=== PATIENT | male | born 1945 | race Caucasian/White ===

== ENCOUNTER 2018-05-16 10:17 | Emergency (ER) | payer MEDICARE, SELFPAY ==
[2018-05-16] VITALS (50 sets, daily range): BP systolic 116–175; BP diastolic 68–112; PULSE 59–102; RESP 11–31; TEMP 36.5–37.9; O2SAT 86–100
--- NOTE | 2018-05-16 10:35 | DI.RAD_ITS ---
SYMPTOMS/DIAGNOSIS: COUGH, SHORTNESS OF BREATH PA AND LATERAL CHEST: Comparison 12/03/07. The heart is normal in size. The lungs are clear. The mediastinal structures and pleura appear intact. CONCLUSION: Normal chest.
--- NOTE | 2018-05-16 10:38 | W.ED.GENAD ---
Discharge Plan Disposition Patient Disposition: OTHER Condition: Poor Discharge Details Chief Complaint: GenMedical Clinical Impression: Acute alteration in mental status, Medication error Primary Care Provider: Grace Flynn ED Provider: Aruna [facility]ows [place] Meds and New Rx's Prescriptions: No Action atorvastatin [Lipitor] 20 MG tablet 80 mg PO DAILY RF: 0 doxepin 25 MG capsule 50 mg PO DAILY RF: 0 clonazepam 1 MG tablet 1 mg PO BID RF: 0 atenolol 25 MG tablet 25 mg PO DAILY RF: 0 aspirin [Aspir-81] 81 MG tablet,delayed release (DR/EC) 81 mg PO DAILY RF: 0 trazodone 150 MG tablet 150 mg PO HS RF: 0 zolpidem 10 MG tablet 10 mg PO .QHS RF: 0 fluoxetine [Prozac] 40 mg Capsule 40 mg PO DAILY RF: 0 acetaminophen 325 mg Tablet 650 mg PO Q6H PRNRF: 0 ipratropium-albuterol 0.5 mg-3 mg(2.5 mg base)/3 mL Solution For Nebulization 3 ml INHALATION QID PRNRF: 0 albuterol sulfate 1.25 mg/3 mL Solution For Nebulization 1.25 mg INHALATION Q4H PRNRF: 0 dextroamphetamine-amphetamine 30 mg Tablet 30 mg PO BID RF: 0 albuterol sulfate 90 mcg/actuation Hfa Aerosol Inhaler 2 puff INHALATION Q6H PRNRF: 0 carboxymethylcellulose sodium 0.5 % Drops 1 drp OPHTHALMIC (EYE) Q6H PRNRF: 0 aripiprazole 2 mg Tablet 0.5 tab PO DAILY RF: 0 cetirizine 10 mg Capsule 10 mg PO BID RF: 0 furosemide 40 mg Tablet 40 mg PO DAILY RF: 0 prazosin 1 mg Capsule 3 cap PO HS RF: 0 prednisone 20 mg Tablet 20 mg PO DAILY RF: 0 metformin 850 mg Tablet 850 mg PO BID RF: 0 melatonin 3 mg Tablet 3 mg PO HS PRNRF: 0 omeprazole 20 mg Capsule,Delayed Release(Dr/Ec) 20 mg PO DAILY RF: 0 hydroxyzine HCl 10 mg Tablet 10 mg PO TID RF: 0 multivitamin Capsule 1 cap PO DAILY RF: 0 fluoxetine 20 mg Capsule 20 mg PO DAILY RF: 0 fluticasone 50 mcg/actuation [place],Suspension 2 spray INTRANASAL DAILY RF: 0 tiotropium bromide 18 mcg Capsule, W/Inhalation Device 1 cap INHALATION DAILY RF: 0 lactulose 10 gram/15 mL Solution 15 ml PO BID PRNRF: 0 Discharge Data Discharge Date/Time-TO BE ENTERED AT DEPARTURE: 05/16/18 19:27 Medical Decision Making [facility] Narrative Medical decision making narrative: Patient presents today with multiple complaints. On initial presentation, he appears tachypneic and short of breath. However, he is taking good deep breaths lung sounds are clear. Vital signs are stable. He is moving air well. With ambulation the patient's tachypnea resolved. Seems worse more actually discussing his current symptoms. This seems to elevate his level of anxiety. Endorsing chest pain shortness of breath, diplopia, headache, tingling in his hands and his feet. His neuro exam is intact. Patient does appear very anxious and easily agitated, particularly talking about past medical care. He reports that he has been to multiple places for that his current complaints. Will obtain EKG, chest x-ray, head CT, laboratory evaluation. He reports that he has been taking his medications as prescribed, is on multiple psychiatric medications. 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 EKG was reviewed by Dr. Prabhakar. No acute ischemic changes or acute abnormalities are noted per her report. I did discuss the case with Dr. Prabhakar. In particular, we discussed the patient's unusual movements of his mandible. She was most consistent with a dystonic reaction. I did review the patient's medications with her questioning for this may be secondary to psychiatric source. Neuro exam otherwise intact. She advised trying Benadryl to help with symptomatic We were contacted by radiologist who advised a negative CT of the head. Also reviewed the chest x-ray and advised no acute abnormality was noted. Discussed these findings with the patient. Patient received Benadryl for his apparent dystonic reaction with the movement of his jaw. I first went into the room, the patient was not having any of his dystonic movements any longer. HAs been resting comfortably. However, when I began chatting with him the movement began again. He is breathing comfortably, unlabored but again, when I begin chatting with the patient is respiratory rate increases. He is ambulated about the department to go to the restroom and when ambulating does not appear tachypneic and has his mouth closed with breathing. However, with talking with me he becomes more tachypneic and is needing to breathe through his mouth. Patient has been calm since Benadryl. I did review the findings of his laboratory evaluation as well as his imaging. He maintains very odd affect and continues to have these dystonic-like movements. Will attempt to contact primary care. Reports multiple places that he received care but [facility] [place] While I was attempting to contact patient's primary care at 1340, patient became very agitated with yelling. Dr. Prabhakar went in to evaluate the patient contacted me. This is a sudden acute change in his demeanor. Began yelling and is agitated. Is just screaming nonsensical words and making noises. Is now reporting that he has not had his medications in 6 days. Reports the [facility] is trying to kill me. He states that he is taking 18 medications. REports he is taking many more medications that he had initially reported. Patient given 2mg IV Ativan. After receiving the Ativan, he reports he is feeling improved. Self insite is much improved. He is able to talk at this time about stopping his medications more readily. Sounds scared about what he has been experiencing, feels alone. I was able to review the [facility] from the [facility]. Patient has saught help for his multiple complaints x 4 in the past week. Each times sounds to have had a cardiac workup. Patient did not sound to indicate at that time his psychiatric concerns. Note does not indicate that the patient had expressed thoughts of stopping his medications. Given the patients mental condition, multiple times of hospital visits, I do not feel that he is safe to go home. Unclear, given his multiple times different stories while here, how the patient has been taking his medications. We discussed that he needs help with his medications and his mental health, patient is very thankful to discuss this. Is very excited about the idea of admission. Contacted [facility] to discuss transfer. Spoke with [facility] phsycian, no beds available. As patient is from [place] and typically gets [facility] in the [facility] [place], they recommended contacting that [facility]. Consulted with the [facility] [place], spoke with Dr. Barron in the ER who accepts transfer. Discussed this with the patient. He is happy to be going back to [place] with a plan for admission. Agrees to transfer. Will give patient po dosing of Ativan prior to transfer as he is anxious about the ambulance ride. Arranged for transfer via EMS. Patient remained calm, was eating and drinking. HPI - General Adult General Mode of arrival: ambulatory. Date/Time Provider Initiated Documentation: 05/16/18 10:28. Limitations to Documentation: no limitations. Information obtained by: patient. HPI Narrative: Patient is a 72-year-old male with history of COPD and depression, presenting today with a multitude of complaints. Reports that for the past 2-3 days he has been having frontal headache, shortness of breath, abnormal movements of his jaw, feeling of unwell, loose bowel movements. Reports that he does not typically have history of headaches. States this is frontal. It was not thunderclap onset. States the headache has persisted over the past 3 days has not changed in severity. Denies any nausea or vomiting. Has had 2 loose bowel movements today. Is also endorsing shortness of breath that has been persistent for the past 2-3 days. Does report that he has history of COPD. Ex-smoker. Has not noted any wheezing or stridor. States that he has had cough that has been quite mild and nonproductive. Since that he is having pleuritic chest pain particularly with cough. Denies any recent travel. No recent surgery. Denies any pain in his legs. Reports that chest pain is not exertional, seems to be more cough driven. Reports I have lung pain. Denies any history of cardiac issues. No history of [place]. No recent fevers. Related Data Home Medications Medication Instructions Recorded Confirmed aspirin [Aspir 81] 81 mg PO DAILY 11/25/12 05/16/18 atenolol 25 mg PO DAILY 11/25/12 05/16/18 atorvastatin [Lipitor] 80 mg PO DAILY 11/25/12 05/16/18 clonazepam 1 mg PO BID 11/25/12 05/16/18 doxepin 50 mg PO DAILY 11/25/12 05/16/18 trazodone 150 mg PO HS 11/25/12 05/16/18 zolpidem 10 mg PO .QHS 11/25/12 05/16/18 acetaminophen 650 mg PO Q6H PRN 05/16/18 05/16/18 albuterol sulfate 1.25 mg INHALATION Q4H PRN 05/16/18 05/16/18 albuterol sulfate 2 puff INHALATION Q6H PRN 05/16/18 05/16/18 aripiprazole 0.5 tab PO DAILY 05/16/18 05/16/18 carboxymethylcellulose sodium 1 drp OPHTHALMIC (EYE) Q6H PRN 05/16/18 05/16/18 cetirizine 10 mg PO BID 05/16/18 05/16/18 dextroamphetamine-amphetamine 30 mg PO BID 05/16/18 05/16/18 fluoxetine 20 mg PO DAILY 05/16/18 05/16/18 fluoxetine [Prozac] 40 mg PO DAILY 05/16/18 05/16/18 fluticasone 2 spray INTRANASAL DAILY 05/16/18 05/16/18 furosemide 40 mg PO DAILY 05/16/18 05/16/18 hydroxyzine HCl 10 mg PO TID 05/16/18 05/16/18 ipratropium-albuterol 3 ml INHALATION QID PRN 05/16/18 05/16/18 lactulose 15 ml PO BID PRN 05/16/18 05/16/18 melatonin 3 mg PO HS PRN 05/16/18 05/16/18 metformin 850 mg PO BID 05/16/18 05/16/18 multivitamin 1 cap PO DAILY 05/16/18 05/16/18 omeprazole 20 mg PO DAILY 05/16/18 05/16/18 prazosin 3 cap PO HS 05/16/18 05/16/18 prednisone 20 mg PO DAILY 05/16/18 05/16/18 tiotropium bromide 1 cap INHALATION DAILY 05/16/18 05/16/18 Allergies Allergy/AdvReac Type Severity Reaction Status Date / Time No Known Allergies Allergy Unverified 05/16/18 12:49 Review of Systems Constitutional Reports as per HPI, Denies body ache(s), Denies chills, Reports fatigue, Denies fever(s), Denies frequent falls, Reports headache(s), Reports malaise, Denies night sweats and Reports poor appetite Eyes Patient Reports diplopia (reports this began shortly prior to arrival), Denies itchy eyes, Denies loss of vision and Denies photophobia ENT Reports abnormal hearing, Reports headache(s), Denies neck pain and Denies sore throat Cardiovascular Reports as per HPI, Reports chest pain, Reports chest pain at rest, Reports chest pain with activity, Denies diaphoresis, Denies syncope, Denies pedal edema, Denies edema, Denies irregular heart rhythm, Denies radiating jaw, neck or arm pain, Denies palpitations, Reports dyspnea and Reports dyspnea on exertion Respiratory Reports cough, Denies hemoptysis, Reports dyspnea, Reports dyspnea on exertion, Denies stridor and Denies wheezing Gastrointestinal Reports as per HPI, Denies melena and Reports change in bowel habits (reports that yesterday and today his BM has been ) Musculoskeletal Denies neck pain Neurologic Reports abnormal hearing, Denies syncope, Denies frequent falls, Reports headache(s) and Denies loss of vision Endocrine Reports fatigue and Denies palpitations Allergic/Immunologic Denies itchy eyes and Denies wheezing [facility] Social History Smoking/Tobacco Use Status: Former Tobacco Use Exam Const General: well developed, acute distress (Patient is tachypnic, appears to be moving air well. He is anxious appearing) moderate and respiratory, anxious, not diaphoretic, disheveled, not ill appearing, does not appear intoxicated, not lethargic and No well hydrated Nutritional Appearance: average body habitus Orientation: alert, awake and oriented x3 HENMT Head: normal to inspection and normocephalic Ears: hearing grossly normal bilaterally, external ears normal and TM's normal bilaterally General nose exam: external nose normal and nares normal Face and sinus: normal facial exam Mouth: oral mucosae normal, lip normal, tongue normal, oropharynx normal and mucous membranes dry (patient appears dry) Teeth and gingiva: dentition normal and gingiva normal Throat: posterior oropharynx normal, tonsils normal and uvula midline Eyes General: appearance normal, both eyes and all related structures Visual Rangel: normal visual rangel by confrontation Alignment and Position: alignment normal Periorbital: periorbital findings normal Eyelids: eyelids normal Conjunctivae: conjunctivae normal Sclera: sclerae normal Pupils: PERRL and normal by confrontation EOM: EOM intact bilaterally and No nystagmus Neck Neck: normal visual inspection, full ROM, no lymphadenopathy, no meningeal signs, trachea midline and supple Resp Effort & Inspection: normal respiratory effort, able to speak in complete sentences and no respiratory distress Auscultation: clear to auscultation bilaterally, no rales, no rhonchi and no wheezes Cardio Jugular venous pressure: no JVD Rate: regular rate Rhythm: regular rhythm Heart Sounds: S1 normal and S2 normal Bruits: no abdominal aortic bruits GI Inspection: normal to inspection, no abdominal wall ecchymosis, no edema and non-distended Palpation: soft, no hepatosplenomegaly, not firm, no guarding, no hepatosplenomegaly, no pulsatile masses, not rigid, tender (diffuse discomfort, no peritoneal findings) and No ascites Auscultation: normal bowel sounds Back/Spine/Pelvis Back: no CVA tenderness Skin General skin exam: no rashes or lesions noted and ecchymosis (right upper arm) Neuro General: alert, awake, oriented x3, gait normal (with ambulation, tachypnea resolves), moves all extremities, no focal motor deficits and CN's II-XI intact bilaterally Cranial Nerves: CN's II-XI intact bilaterally, PERRL, EOM intact bilaterally, no nystagmus, facial strength normal, tongue midline, hearing normal, able to rotate head bilaterally and no nystagmus Cognition: normal cognition Speech: speech normal Gait: normal gait Motor: muscle tone normal throughout and strength 5/5 throughout Sensory Exam: no sensory deficits noted Coordination: [id number] test normal and [id number] test normal Extrem General: normal to inspection, no joint enlargement, no clubbing, cyanosis or edema, no pedal edema, no calf tenderness and normal gait Psych Appearance: grossly normal and disheveled Mental Status: mental status grossly abnormal (patient appears very anxious, appears to be having dystonic reaction with moving his mandible back and forth, this stops with opening of the mouth and speaking) Speech and Movement: agitated, speech clear, speech not delayed and restless Mood: anxious mood, angry and irritable mood Affect: anxious affect Attitude: cooperative Thought Content: no hallucinations, no homicidality and suicidality Judgment: limited
[2018-05-16 10:55] LABS: Bilirubin Negative (Negative); Blood Negative (Negative); Clarity Sl Cloudy; Glucose Negative (Negative); Ketones Negative (Negative); Leukocyte Esterase Negative (Negative); Nitrite Negative (Negative); Specific Gravity 1.015 (1.005-1.025); Urobilinogen 0.2 EU/dL (Up TO 0.2)
--- NOTE | 2018-05-16 11:09 | DI.CT_ITS ---
SYMPTOMS/DIAGNOSIS: HEADACHE CT BRAIN: Noncontrast. Comparison MRI is 09/22/12. There is a normal bruno/white matter differentiation. The ventricles are intact. The basilar cisterns are patent. No intracranial hemorrhage, infarct, midline shift or mass effect is identified. There is mild mucosal thickening in the left maxillary sinus. The remaining visualized paranasal sinuses are clear. No fluid levels are seen. The mastoid air cells are well pneumatized. The calvarium is intact. IMPRESSION: No acute intracranial process. The findings were discussed with the emergency department on the date of the examination.
[2018-05-16 11:12] LABS: Bacteria Negative HPF (Negative); C & S Indicated? No; Casts Negative LPF (Negative); Crystals Negative HPF (Negative); Epithelial Cells Many HPF (Negative); Mucus Negative (Negative); RBC Negative (0-2); WBC Negative HPF (0-5)
[2018-05-16] MEDS: Normal Saline 1,000 ML 150 ML IV (11:40)
[2018-05-16] MEDS: diphenhydrAMINE 50 MG/ML VIAL 25 MG IVP (11:46)
[2018-05-16 11:54] LABS: Abs Immature Grans 0.01 k/cumm (0.0-0.09); Absolute Basophil Count 0.06 k/cumm (0.0-0.2); Absolute Eosinophil Count 0.08 k/cumm (0.0-0.7); Absolute Lymphocyte Count 1.71 k/cumm (1.2-3.4); Absolute Monocyte Count 0.83 k/cumm (0.11-0.7); Absolute Neutrophil Count 4.45 k/cumm (1.2-6.7); Basophils % 0.8; Eosinophils % 1.1; HCT 34.9 % (40.0-50.0); HGB 11.8 g/dL (13.5-17.5); Immature Grans % 0.1; Lymphocytes % 23.9; Mean Corp. HGB Concentration 33.8 g/dL (32.0-36.0); Mean Corpuscular Hemoglobin 29.8 pg (27.0-33.0); Mean Corpuscular Volume 88.1 fL (80-95); Mean Platelet Volume 9.6 fL (8.0-11.0); Monocytes % 11.6; Neutrophils % 62.5; Platelet Count 248 x1000/uL (130-400); RBC 3.96 m/cumm (4.50-6.00); RBC Distribution Width 15.2 % (11.8-14.1); White Blood Cell Count 7.14 k/cumm (4.4-10.8)
[2018-05-16 12:07] LABS: PTT Activated 23.5 sec (21.0-31.4)
[2018-05-16 12:12] LABS: ALT 40 U/L (12-78); AST 33 U/L (15-37); Albumin 3.4 g/dL (3.4-5.0); Alkaline Phosphatase 65 U/L (46-116); Anion Gap 11.9 mmol/L (3-11); BUN 15 mg/dL (7-18); Bilirubin, Total 0.3 mg/dL (0.2-1.0); CO2 22.1 mmol/L (21.0-32.0); CREATININE 0.99 mg/dL (0.70-1.30); Calcium 8.7 mg/dL (8.5-10.1); Chloride 103 mmol/L (98-107); Glucose 117 mg/dL (70-100); Magnesium 1.7 mg/dL (1.8-2.4); Sodium 137 mmol/L (136-145); TSH (W/Ref FT4) 3.24 uIU/mL (0.358-3.74); Total Protein 7.1 g/dL (6.4-8.2)
[2018-05-16 12:15] LABS: Troponin I < 0.02 ng/mL (0.00-0.06)
[2018-05-16 12:25] LABS: D-Dimer 569 ng/mlFEU (<500)
[2018-05-16 12:34] LABS: NT-proBNP 89 pg/mL
[2018-05-16] MEDS: LORazepam 2 MG/ML VIAL IVP (13:50)
[2018-05-16 14:24] LABS: Bilirubin Negative (Negative); Blood Negative (Negative); Clarity Clear; Glucose Negative (Negative); Ketones Negative (Negative); Leukocyte Esterase Negative (Negative); Nitrite Negative (Negative); Specific Gravity 1.015 (1.005-1.025); Urobilinogen 0.2 EU/dL (Up TO 0.2); pH 8.5 (5-8)
[2018-05-16 14:41] LABS: *AMPHETAMINES SCREEN URINE Negative (Negative); *BARBITURATES SCREEN URINE Negative (Negative); *BENZODIAZEPINES SCREEN URINE Negative (Negative); Cannabinoids THC Negative (Negative); Cocaine Screen,Urine Negative (Negative); METHADONE URINE SCREEN Negative (Negative); OPIATES URINE SCREEN Negative (Negative)
[2018-05-16 14:45] LABS: Tricyclic Antidepressants Negative (Negative)
[2018-05-16] MEDS: LORazepam 1 MG TAB 2 MG PO (18:56)
[2018-05-16] MEDS: Ondansetron O.D.T. 4 MG TABEF (19:29)
--- NOTE | 2018-05-17 09:29 | NUR.NOTE ---
Nursing Note:[facility] On for patient information was called. P. [phone] F [phone]. Alexia Vazquez.
== END 2018-05-16 19:27 | disposition other institution (70) ==
PROVIDERS: Emergency Provider Physician Assistant
DX: R41.82 Altered mental status, unspecified (principal); Z91.14 Patient's other noncompliance with medication regimen; G24.9 Dystonia, unspecified; R45.1 Restlessness and agitation; J44.9 Chronic obstructive pulmonary disease, unspecified; Z87.891 Personal history of nicotine dependence
CPT/HCPCS: 80053; 80307; 93005; 96361; 96374; 96375; 99285; 70450; 71046; 81003; 81015; 83735; 83880; 84443; 84484; 85025; 85379; 85610; 85730; 93010; J1200; J2060

== ENCOUNTER 2018-06-13 10:47 | Emergency (ER) | payer MEDICARE, SELFPAY ==
[2018-06-13] VITALS (39 sets, daily range): BP systolic 114–174; BP diastolic 60–95; PULSE 59–87; RESP 1–29; TEMP 36.3–36.7; O2SAT 97–100
[2018-06-13] MEDS: Normal Saline 1,000 ML 1000 ML IV (11:10)
[2018-06-13] MEDS: LORazepam 2 MG/ML VIAL 0.5 MG IVP ×2 (11:15→17:30)
--- NOTE | 2018-06-13 11:15 | DI.RAD_ITS ---
SYMPTOM/DIAGNOSIS: COUGH PA AND LATERAL CHEST: The lungs appear mildly hyperinflated. Cardiac size is within normal limits. No pulmonary infiltrate is seen. No pleural effusion. CONCLUSION: No evidence of acute disease. No change from 05/16/18.
[2018-06-13] MEDS: Albuterol/Ipratropium 3 ML UPD VIAL UPD (11:20)
--- NOTE | 2018-06-13 11:24 | W.ED.GENAD ---
Discharge Plan Disposition Patient Disposition: [facility] Condition: Stable Discharge Details Chief Complaint: PsychEval Clinical Impression: Acute bronchitis with COPD, Suicidal ideation, Paranoid behavior Primary Care Provider: Grace Flynn ED Provider: Carol Cruz Home Meds and New Rx's Prescriptions: New doxycycline hyclate 100 mg capsule 100 mg PO BID 10 Days Qty: 20 RF: 0 prednisone 20 mg tablet 40 mg PO DAILY 5 Days Qty: 10 RF: 0 Continue atorvastatin [Lipitor] 20 MG tablet 80 mg PO DAILY RF: 0 doxepin 25 MG capsule 50 mg PO DAILY RF: 0 clonazepam 1 MG tablet 1 mg PO BID RF: 0 atenolol 25 MG tablet 25 mg PO DAILY RF: 0 aspirin [Aspir-81] 81 MG tablet,delayed release (DR/EC) 81 mg PO DAILY RF: 0 trazodone 150 MG tablet 100 mg PO HS RF: 0 zolpidem 10 MG tablet 10 mg PO .QHS RF: 0 acetaminophen 325 mg Tablet 650 mg PO Q6H PRNRF: 0 ipratropium-albuterol 0.5 mg-3 mg(2.5 mg base)/3 mL Solution For Nebulization 3 ml INHALATION QID PRNRF: 0 albuterol sulfate 1.25 mg/3 mL Solution For Nebulization 1.25 mg INHALATION Q4H PRNRF: 0 albuterol sulfate 90 mcg/actuation Hfa Aerosol Inhaler 2 puff INHALATION Q6H PRNRF: 0 carboxymethylcellulose sodium 0.5 % Drops 1 drp OPHTHALMIC (EYE) Q6H PRNRF: 0 cetirizine 10 mg Capsule 10 mg PO BID RF: 0 furosemide 40 mg Tablet 40 mg PO DAILY RF: 0 prazosin 1 mg Capsule 2 mg PO HS RF: 0 metformin 850 mg Tablet 850 mg PO BID RF: 0 melatonin 3 mg Tablet 9 mg PO HS PRNRF: 0 omeprazole 20 mg Capsule,Delayed Release(Dr/Ec) 20 mg PO DAILY RF: 0 hydroxyzine HCl 10 mg Tablet 10 mg PO TID RF: 0 multivitamin Capsule 1 cap PO DAILY RF: 0 fluticasone 50 mcg/actuation [place],Suspension 2 spray INTRANASAL DAILY RF: 0 tiotropium bromide 18 mcg Capsule, W/Inhalation Device 1 cap INHALATION DAILY RF: 0 lactulose 10 gram/15 mL Solution 15 ml PO BID PRNRF: 0 sennosides 8.6 mg Tablet 2 tab PO .QHS RF: 0 fluoxetine [Prozac] 10 mg Capsule 30 mg PO DAILY RF: 0 docusate sodium [Colace] 100 mg Capsule 2 tab PO BID RF: 0 gabapentin 300 mg Capsule 300 mg PO TID RF: 0 quetiapine 50 mg Tablet 25 mg PO TID RF: 0 [id number]-[id number]-fish oil [[place]-3 Fish Oil] 300-1,000 mg Capsule 1 tab PO DAILY RF: 0 olodaterol [Striverdi Respimat] 2.5 mcg/actuation Mist 2 puff Inhalation DAILY RF: 0 Discontinued prednisone 20 mg Tablet 20 mg PO DAILY RF: 0 No Action tiotropium bromide [Spiriva Respimat] 2.5 mcg/actuation Mist 2 puff Inhalation DAILY RF: 0 Discharge Data Discharge Date/Time-TO BE ENTERED AT DEPARTURE: 06/14/18 18:53 Medical Decision Making <Raymond Villalpando MD - Last Filed: 06/13/18 14:51> 72-year-old male presents from home with cough, congestion, wheeze over days time. He is interactive but anxious. He does have normal vital signs including oxygenation and no evidence of fever. Diagnosis acute bronchitis, pneumonia, acute coronary syndrome, patient may have a component of overlying anxiety. Patient was given DuoNeb, referred for chest x-ray, laboratory testing, given small aliquot of anxiolytic. Patient CBC is reassuring with a white count of 8, hematocrit 34, fluids to 49. Chemistries reveal mild prerenal dehydration with a BUN of 22, troponin is negative. Urinalysis unremarkable. Patient's chest x-ray without focal infiltrate. Patient improved with the above interventions. I do feel this is consistent with bronchitis and COPD exacerbation. Discussed home management with him including use of a burst of oral/systemic steroids and antibiotic. He voiced concerned with returning to his domicile, he was interviewed by care management in the ER. He stated to our care management team that he has been feeling depressed and suicidal, therefore I feel he is best served by mental health evaluation given that he is now medically screened and stable for further mental health interview. Lab Data Lab results reviewed: Yes I reviewed the patient's lab results. Laboratory Tests Range/Units 06/13/18 06/13/18 06/13/18 11:00 11:00 11:00 WBC (4.4-10.8) k/cumm 8.48 RBC (4.50-6.00) m/cumm 3.88 L Hgb (13.5-17.5) g/dL 11.4 L Hct (40.0-50.0) % 34.8 L MCV (80-95) fL 89.7 MCH (27.0-33.0) pg 29.4 MCHC (32.0-36.0) g/dL 32.8 RDW (11.8-14.1) % 15.4 H Plt Count (130-400) x1000/uL 249 MPV (8.0-11.0) fL 10.4 Immature Gran % 0.2 Neutrophils % 63.7 Lymphocytes % 25.9 Monocytes % 9.3 Eosinophils % 0.5 Basophils % 0.4 Absolute Neutrophils (1.2-6.7) k/cumm 5.40 Absolute Lymphocytes (1.2-3.4) k/cumm 2.20 Absolute Monocytes (0.11-0.7) k/cumm 0.79 H Absolute Eosinophils (0.0-0.7) k/cumm 0.04 Absolute Basophils (0.0-0.2) k/cumm 0.03 Sodium (136-145) mmol/L 138 Potassium (3.5-5.1) mmol/L 3.8 Chloride (98-107) mmol/L 102 Carbon Dioxide (21.0-32.0) mmol/L 23.3 Anion Gap (3-11) mmol/L 12.7 H BUN (7-18) mg/dL 22 H Creatinine (0.70-1.30) mg/dL 0.95 Estimated GFR/1.73 m2 (mL/min/1.73m2) >= 60.00 Glucose (70-100) mg/dL 89 Calcium (8.5-10.1) mg/dL 9.0 Magnesium (1.8-2.4) mg/dL 1.4 L Total Bilirubin (0.2-1.0) mg/dL 0.4 0.4 Conjugated Bilirubin (0.00-0.20) mg/dL 0.09 AST (15-37) U/L 20 22 ALT (12-78) U/L 38 38 Alkaline Phosphatase (46-116) U/L 62 61 Troponin I (0.00-0.06) ng/mL < 0.02 Total Protein (6.4-8.2) g/dL 7.1 7.0 Albumin (3.4-5.0) g/dL 3.4 3.5 ECG Data Attestation: I personally reviewed and interpreted this ECG (s) as follows: Interpretation: Normal sinus rhythm, the rate is 68, the QRS is narrow, there is no ST segment elevation <Carol Cruz DO - Last Filed: 06/16/18 20:58> Please see previous providers notes for initial presentation, exam and plan. Patient is a 72-year-old male who initially presented to ED with complaints of shortness of breath and tingling in his hands and feet. He subsequently was medically cleared and was being prepared for discharge home when he expressed thoughts of suicide and paranoia that he is being followed and poisoned, possibly by the man with whom his had an affair. He had a plan to possibly overdose on his prescription medication. Please see mental health notes for further details. Patient was recently seen at a psych facility at the [facility] and is voluntarily requesting readmission there. Plan per mental health and care management was for transfer to the [place] psych facility this morning once bed available. No acute events overnight. Patient is requesting his morning medication of prozac, gabapentin, and Seroquel which will be given. 920 -- D/w NH Dr. Acharya who accepts pt for transfer to [facility]. Would like pt to transfer by [facility] ambulance. D/w care management and there was plan to transfer by sheriff's sergeant but Dr. Acharya would prefer transfer by ambulance as does not have medical training and not standard of care. [facility] will call back for nurse [facility]. As pt was initially discharged with acute bronchitis before he admitted to being suicidal, he had been given scripts for doxycycline and prednisone. Will give one dose of prednisone and doxycycline now and scripts for these to go with him to the NH. Dr. Acharya was informed of his diagnosis of acute bronchitis. There was a delay in going to the NH due to transport. Ambulance came by 2pm. Pt was stable while here. HPI <Raymond Villalpando MD - Last Filed: 06/13/18 14:51> General Mode of arrival: ambulatory. Date/Time Provider Initiated Documentation: 06/13/18 10:58. Limitations to Documentation: no limitations. Information obtained by: patient. History of Present Illness 72 year old M presents to the emergency department with the chief complaint of Cough and wheeze, described as moderate, Quality is described as aching and constant, and is localized to the chest. Patient reports no radiation. Patient started experiencing this day(s) No relieving factors improve symptom(s), HPI Narrative: 72-year-old male presents from home with cough, congestion, generalized weakness and associated wheeze over days time. He has had some chest discomfort with coughing but no chest pain at rest. He does report subjective fever and chills along with production of green colored sputum. Tolerate liquids and solids by mouth. Endorses a mild, dull, achy, nonradiating headache. Related Data Home Medications Medication Instructions Recorded Confirmed aspirin [Aspir-81] 81 mg PO DAILY 11/25/12 06/13/18 atenolol 25 mg PO DAILY 11/25/12 06/13/18 atorvastatin [Lipitor] 80 mg PO DAILY 11/25/12 06/13/18 clonazepam 1 mg PO BID 11/25/12 06/13/18 doxepin 50 mg PO DAILY 11/25/12 06/13/18 trazodone 100 mg PO HS 11/25/12 06/14/18 zolpidem 10 mg PO .QHS 11/25/12 06/13/18 acetaminophen 650 mg PO Q6H PRN 05/16/18 06/13/18 albuterol sulfate 1.25 mg INHALATION Q4H PRN 05/16/18 06/13/18 albuterol sulfate 2 puff INHALATION Q6H PRN 05/16/18 06/13/18 carboxymethylcellulose sodium 1 drp OPHTHALMIC (EYE) Q6H PRN 05/16/18 06/13/18 cetirizine 10 mg PO BID 05/16/18 06/13/18 fluticasone 2 spray INTRANASAL DAILY 05/16/18 06/13/18 furosemide 40 mg PO DAILY 05/16/18 06/13/18 hydroxyzine HCl 10 mg PO TID 05/16/18 06/13/18 ipratropium-albuterol 3 ml INHALATION QID PRN 05/16/18 06/13/18 lactulose 15 ml PO BID PRN 05/16/18 06/13/18 melatonin 9 mg PO HS PRN 05/16/18 06/14/18 metformin 850 mg PO BID 05/16/18 06/13/18 multivitamin 1 cap PO DAILY 05/16/18 06/13/18 omeprazole 20 mg PO DAILY 05/16/18 06/13/18 prazosin 2 mg PO HS 05/16/18 06/14/18 tiotropium bromide 1 cap INHALATION DAILY 05/16/18 06/13/18 doxycycline hyclate 100 mg PO BID 10 Days #20 cap 06/13/18 prednisone 40 mg PO DAILY 5 Days #10 tab 06/13/18 docusate sodium [Colace] 2 tab PO BID 06/14/18 06/14/18 fluoxetine [Prozac] 30 mg PO DAILY 06/14/18 06/14/18 gabapentin 300 mg PO TID 06/14/18 06/14/18 olodaterol [Striverdi Respimat] 2 puff INHALATION DAILY 06/14/18 06/14/18 nadup-[id number]-epa-fish oil [[place]-3 1 tab PO DAILY 06/14/18 06/14/18 Fish Oil] quetiapine 25 mg PO TID 06/14/18 06/14/18 sennosides 2 tab PO .QHS 06/14/18 06/14/18 tiotropium bromide [Spiriva 2 puff INHALATION DAILY 06/14/18 06/14/18 Respimat] Previous Rx's Medication Instructions Recorded doxycycline hyclate 100 mg PO BID 10 Days #20 cap 06/13/18 prednisone 40 mg PO DAILY 5 Days #10 tab 06/13/18 Allergies Allergy/AdvReac Type Severity Reaction Status Date / Time No Known Allergies Allergy Unverified 06/13/18 10:59 General Stated Complaint: Chest Pain ION: 2 Review of Systems <Raymond Villalpando MD - Last Filed: 06/13/18 14:51> Review of Systems 8 systems reviewed and otherwise neg Exam <Raymond Villalpando MD - Last Filed: 06/13/18 14:51> Narrative Exam Narrative: GEN: awake, alert, oriented 3. Pleasant, well groomed, interactive. HEAD: Normocephalic, atraumatic ENT: Mucous membranes moist, oropharynx unremarkable, External ear exam unremarkable EYES: PERRL, EOMI NECK: Full ROM, no JAZ, no menigismus CHEST/RESP: Nontender, diminished bilaterally with discrete end expiratory wheeze appreciated CARDIOVASCULAR: Regular rate and rhythm, no murmur, rub reinier. 2+ Rad pulse bilateral ABDOMEN: Soft, nontender, no mass. +Bowel sounds EXT: Full ROM, no edema, no rash Neuro: Grossly normal neurologic exam, conversant, interactive. Psych: Speech fluent, thoughts congruent, affect anxious Course <Raymond Villalpando MD - Last Filed: 06/13/18 14:51> Vital Signs Temperature 36.7 C 06/13/18 10:56 Pulse 68 06/13/18 10:56 Respiratory Rate 24 06/13/18 10:56 Blood Pressure 139/74 06/13/18 10:56 Pulse Oximetry 99 06/13/18 10:56 Temperature 36.7 C 06/13/18 10:56 Temperature Source Skin 06/13/18 10:56 Pulse 68 06/13/18 10:56 Respiratory Rate 24 06/13/18 10:56 Respiratory Effort Non-Labored 06/13/18 10:56 Blood Pressure 139/74 06/13/18 10:56 Pulse Oximetry 99 06/13/18 10:56 Oxygen Delivery Method Room Air 06/13/18 10:56 Oxygen Flow Rate 0 06/13/18 10:56 Pain Level 9 06/13/18 10:56 Sign Out <Raymond Villalpando MD - Last Filed: 06/13/18 14:51> Sign Out Data: Sign Out Comment: pending placement Last updated by Aleksandr Burk DO at 06/14/18 00:10 Post-Handoff Eval: Patient without issues overnight. Morning medications ordered. Patient to be signed over to [facility]coming day physician for mental health and case management to work on placement. Continues with one on one observer. Sign Out Comment: Patient signed out pending placement for mental health. Last updated by Rajat Fairchild MD at 06/14/18 08:00
--- NOTE | 2018-06-13 11:27 | ED.GENADUL_ITS ---
Discharge Plan Disposition Patient Disposition: [facility] Condition: Stable Discharge Details Chief Complaint: PsychEval Clinical Impression: Acute bronchitis with COPD, Suicidal ideation, Paranoid behavior Primary Care Provider: Grace Flynn ED Provider: Carol Cruz Home Meds and New Rx's Prescriptions: New doxycycline hyclate 100 mg capsule 100 mg PO BID 10 Days Qty: 20 RF: 0 prednisone 20 mg tablet 40 mg PO DAILY 5 Days Qty: 10 RF: 0 Continue atorvastatin [Lipitor] 20 MG tablet 80 mg PO DAILY RF: 0 doxepin 25 MG capsule 50 mg PO DAILY RF: 0 clonazepam 1 MG tablet 1 mg PO BID RF: 0 atenolol 25 MG tablet 25 mg PO DAILY RF: 0 aspirin [Aspir-81] 81 MG tablet,delayed release (DR/EC) 81 mg PO DAILY RF: 0 trazodone 150 MG tablet 100 mg PO HS RF: 0 zolpidem 10 MG tablet 10 mg PO .QHS RF: 0 acetaminophen 325 mg Tablet 650 mg PO Q6H PRNRF: 0 ipratropium-albuterol 0.5 mg-3 mg(2.5 mg base)/3 mL Solution For Nebulization 3 ml INHALATION QID PRNRF: 0 albuterol sulfate 1.25 mg/3 mL Solution For Nebulization 1.25 mg INHALATION Q4H PRNRF: 0 albuterol sulfate 90 mcg/actuation Hfa Aerosol Inhaler 2 puff INHALATION Q6H PRNRF: 0 carboxymethylcellulose sodium 0.5 % Drops 1 drp OPHTHALMIC (EYE) Q6H PRNRF: 0 cetirizine 10 mg Capsule 10 mg PO BID RF: 0 furosemide 40 mg Tablet 40 mg PO DAILY RF: 0 prazosin 1 mg Capsule 2 mg PO HS RF: 0 metformin 850 mg Tablet 850 mg PO BID RF: 0 melatonin 3 mg Tablet 9 mg PO HS PRNRF: 0 omeprazole 20 mg Capsule,Delayed Release(Dr/Ec) 20 mg PO DAILY RF: 0 hydroxyzine HCl 10 mg Tablet 10 mg PO TID RF: 0 multivitamin Capsule 1 cap PO DAILY RF: 0 fluticasone 50 mcg/actuation [place] [facility],Suspension 2 spray INTRANASAL DAILY RF: 0 tiotropium bromide 18 mcg Capsule, W/Inhalation Device 1 cap INHALATION DAILY RF: 0 lactulose 10 gram/15 mL Solution 15 ml PO BID PRNRF: 0 sennosides 8.6 mg Tablet 2 tab PO .QHS RF: 0 fluoxetine [Prozac] 10 mg Capsule 30 mg PO DAILY RF: 0 docusate sodium [Colace] 100 mg Capsule 2 tab PO BID RF: 0 gabapentin 300 mg Capsule 300 mg PO TID RF: 0 quetiapine 50 mg Tablet 25 mg PO TID RF: 0 aladj-[id number]-epa-fish oil [Bullock-3 Fish Oil] 300-1,000 mg Capsule 1 tab PO DAILY RF: 0 olodaterol [Striverdi Respimat] 2.5 mcg/actuation Mist 2 puff Inhalation DAILY RF: 0 Discontinued prednisone 20 mg Tablet 20 mg PO DAILY RF: 0 No Action tiotropium bromide [Spiriva Respimat] 2.5 mcg/actuation Mist 2 puff Inhalation DAILY RF: 0 Discharge Data Discharge Date/Time-TO BE ENTERED AT DEPARTURE: 06/14/18 18:53 Medical Decision Making <Raymond Villalpando MD - Last Filed: 06/13/18 14:51> 72-year-old male presents from home with cough, congestion, wheeze over days time. He is interactive but anxious. He does have normal vital signs including oxygenation and no evidence of fever. Diagnosis acute bronchitis, pneumonia, acute coronary syndrome, patient may have a component of overlying anxiety. Patient was given DuoNeb, referred for chest x-ray, laboratory testing, given small aliquot of anxiolytic. Patient CBC is reassuring with a white count of 8, hematocrit 34, fluids to 49. Chemistries reveal mild prerenal dehydration with a BUN of 22, troponin is negative. Urinalysis unremarkable. Patient's chest x-ray without focal infiltrate. Patient improved with the above interventions. I do feel this is consistent with bronchitis and COPD exacerbation. Discussed home management with him including use of a burst of oral/systemic steroids and antibiotic. He voiced concerned with returning to his domicile, he was interviewed by care management in the ER. He stated to our care management team that he has been feeling depressed and suicidal, therefore I feel he is best served by mental health evaluation given that he is now medically screened and stable for further mental health interview. Lab Data Lab results reviewed: Yes I reviewed the patient's lab results. Laboratory Tests Range/Units 06/13/18 06/13/18 06/13/18 11:00 11:00 11:00 WBC (4.4-10.8) k/cumm 8.48 RBC (4.50-6.00) m/cumm 3.88 L Hgb (13.5-17.5) g/dL 11.4 L Hct (40.0-50.0) % 34.8 L MCV (80-95) fL 89.7 MCH (27.0-33.0) pg 29.4 MCHC (32.0-36.0) g/dL 32.8 RDW (11.8-14.1) % 15.4 H Plt Count (130-400) x1000/uL 249 MPV (8.0-11.0) fL 10.4 Immature Gran % 0.2 Neutrophils % 63.7 Lymphocytes % 25.9 Monocytes % 9.3 Eosinophils % 0.5 Basophils % 0.4 Absolute Neutrophils (1.2-6.7) k/cumm 5.40 Absolute Lymphocytes (1.2-3.4) k/cumm 2.20 Absolute Monocytes (0.11-0.7) k/cumm 0.79 H Absolute Eosinophils (0.0-0.7) k/cumm 0.04 Absolute Basophils (0.0-0.2) k/cumm 0.03 Sodium (136-145) mmol/L 138 Potassium (3.5-5.1) mmol/L 3.8 Chloride (98-107) mmol/L 102 Carbon Dioxide (21.0-32.0) mmol/L 23.3 Anion Gap (3-11) mmol/L 12.7 H BUN (7-18) mg/dL 22 H Creatinine (0.70-1.30) mg/dL 0.95 Estimated GFR/1.73 m2 (mL/min/1.73m2) >= 60.00 Glucose (70-100) mg/dL 89 Calcium (8.5-10.1) mg/dL 9.0 Magnesium (1.8-2.4) mg/dL 1.4 L Total Bilirubin (0.2-1.0) mg/dL 0.4 0.4 Conjugated Bilirubin (0.00-0.20) mg/dL 0.09 AST (15-37) U/L 20 22 ALT (12-78) U/L 38 38 Alkaline Phosphatase (46-116) U/L 62 61 Troponin I (0.00-0.06) ng/mL < 0.02 Total Protein (6.4-8.2) g/dL 7.1 7.0 Albumin (3.4-5.0) g/dL 3.4 3.5 ECG Data Attestation: I personally reviewed and interpreted this ECG (s) as follows: Interpretation: Normal sinus rhythm, the rate is 68, the QRS is narrow, there is no ST segment elevation <Carol Cruz DO - Last Filed: 06/16/18 20:58> Please see previous providers notes for initial presentation, exam and plan. Patient is a 72-year-old male who initially presented to ED with complaints of shortness of breath and tingling in his hands and feet. He subsequently was medically cleared and was being prepared for discharge home when he expressed thoughts of suicide and paranoia that he is being followed and poisoned, possibly by the man with whom his had an affair. He had a plan to possibly overdose on his prescription medication. Please see mental health notes for further details. Patient was recently seen at a [facility] and is voluntarily requesting readmission there. Plan per mental health and care management was for transfer to the [facility] psych facility this morning once bed available. No acute events overnight. Patient is requesting his morning medication of prozac , gabapentin, and Seroquel which will be given. 920 -- D/w [facility] Dr. Acharya who accepts pt for transfer to [facility]. Would like pt to transfer by [facility] ambulance. D/w care management and there was plan to transfer by insurance sales professional but Dr. Acharya would prefer transfer by ambulance as does not have medical training and not standard of care. [facility] will call back for nurse [facility] nurse report [facility]. As pt was initially discharged with acute bronchitis before he admitted to being suicidal, he had been given scripts for doxycycline and prednisone. Will give one dose of prednisone and doxycycline now and scripts for these to go with him to the [facility]. Dr. Acharya was informed of his diagnosis of acute bronchitis. There was a delay in going to the [facility] due to transport. Ambulance came by 2pm. Pt was stable while here. HPI <Raymond Villalpando MD - Last Filed: 06/13/18 14:51> General Mode of arrival: ambulatory . Date/Time Provider Initiated Documentation: 06/13/18 10:58 . Limitations to Documentation: no limitations . Information obtained by: patient . History of Present Illness 72 year old M presents to the emergency department with the chief complaint of Cough and wheeze, described as moderate, Quality is described as aching and constant, and is localized to the chest. Patient reports no radiation. Patient started experiencing this day(s) No relieving factors improve symptom( s), HPI Narrative: 72-year-old male presents from home with cough, congestion, generalized weakness and associated wheeze over days time. He has had some chest discomfort with coughing but no chest pain at rest. He does report subjective fever and chills along with production of green colored sputum. Tolerate liquids and solids by mouth. Endorses a mild, dull, achy, nonradiating headache. Related Data Home Medications Medication Instructions Recorded Confirmed aspirin [Aspir-81] 81 mg PO DAILY 11/25/12 06/13/18 atenolol 25 mg PO DAILY 11/25/12 06/13/18 atorvastatin [Lipitor] 80 mg PO DAILY 11/25/12 06/13/18 clonazepam 1 mg PO BID 11/25/12 06/13/18 doxepin 50 mg PO DAILY 11/25/12 06/13/18 trazodone 100 mg PO HS 11/25/12 06/14/18 zolpidem 10 mg PO .QHS 11/25/12 06/13/18 acetaminophen 650 mg PO Q6H PRN 05/16/18 06/13/18 albuterol sulfate 1.25 mg INHALATION Q4H PRN 05/16/18 06/13/18 albuterol sulfate 2 puff INHALATION Q6H PRN 05/16/18 06/13/18 carboxymethylcellulose sodium 1 drp OPHTHALMIC (EYE) Q6H PRN 05/16/18 06/13/18 cetirizine 10 mg PO BID 05/16/18 06/13/18 fluticasone 2 spray INTRANASAL DAILY 05/16/18 06/13/18 furosemide 40 mg PO DAILY 05/16/18 06/13/18 hydroxyzine HCl 10 mg PO TID 05/16/18 06/13/18 ipratropium-albuterol 3 ml INHALATION QID PRN 05/16/18 06/13/18 lactulose 15 ml PO BID PRN 05/16/18 06/13/18 melatonin 9 mg PO HS PRN 05/16/18 06/14/18 metformin 850 mg PO BID 05/16/18 06/13/18 multivitamin 1 cap PO DAILY 05/16/18 06/13/18 omeprazole 20 mg PO DAILY 05/16/18 06/13/18 prazosin 2 mg PO HS 05/16/18 06/14/18 tiotropium bromide 1 cap INHALATION DAILY 05/16/18 06/13/18 doxycycline hyclate 100 mg PO BID 10 Days #20 cap 06/13/18 prednisone 40 mg PO DAILY 5 Days #10 tab 06/13/18 docusate sodium [Colace] 2 tab PO BID 06/14/18 06/14/18 fluoxetine [Prozac] 30 mg PO DAILY 06/14/18 06/14/18 gabapentin 300 mg PO TID 06/14/18 06/14/18 olodaterol [Striverdi Respimat] 2 puff INHALATION DAILY 06/14/18 06/14/18 wbvpb-0b-kek-epa-fish oil [Bullock-3 1 tab PO DAILY 06/14/18 06/14/18 Fish Oil] quetiapine 25 mg PO TID 06/14/18 06/14/18 sennosides 2 tab PO .QHS 06/14/18 06/14/18 tiotropium bromide [Spiriva 2 puff INHALATION DAILY 06/14/18 06/14/18 Respimat] Previous Rx's Medication Instructions Recorded doxycycline hyclate 100 mg PO BID 10 Days #20 cap 06/13/18 prednisone 40 mg PO DAILY 5 Days #10 tab 06/13/18 Allergies Allergy/AdvReac Type Severity Reaction Status Date / Time No Known Allergies Allergy Unverified 06/13/18 10:59 General Stated Complaint: Chest Pain ION: 2 Review of Systems <Raymond Villalpando MD - Last Filed: 06/13/18 14:51> Review of Systems 8 systems reviewed and otherwise neg Exam <Raymond Villalpando MD - Last Filed: 06/13/18 14:51> Narrative Exam Narrative: GEN: awake, alert, oriented 3. Pleasant, well groomed, interactive. HEAD: Normocephalic, atraumatic ENT: Mucous membranes moist, oropharynx unremarkable, External ear exam unremarkable EYES: PERRL, EOMI NECK: Full ROM, no JAZ, no menigismus CHEST/RESP: Nontender, diminished bilaterally with discrete end expiratory wheeze appreciated CARDIOVASCULAR: Regular rate and rhythm, no murmur, rub reinier. 2+ Rad pulse bilateral ABDOMEN: Soft, nontender, no mass. +Bowel sounds EXT: Full ROM, no edema, no rash Neuro: Grossly normal neurologic exam, conversant, interactive. Psych: Speech fluent, thoughts congruent, affect anxious Course <Raymond Villalpando MD - Last Filed: 06/13/18 14:51> Vital Signs Temperature 36.7 C 06/13/18 10:56 Pulse 68 06/13/18 10:56 Respiratory Rate 24 06/13/18 10:56 Blood Pressure 139/74 06/13/18 10:56 Pulse Oximetry 99 06/13/18 10:56 Temperature 36.7 C 06/13/18 10:56 Temperature Source Skin 06/13/18 10:56 Pulse 68 06/13/18 10:56 Respiratory Rate 24 06/13/18 10:56 Respiratory Effort Non-Labored 06/13/18 10:56 Blood Pressure 139/74 06/13/18 10:56 Pulse Oximetry 99 06/13/18 10:56 Oxygen Delivery Method Room Air 06/13/18 10:56 Oxygen Flow Rate 0 06/13/18 10:56 Pain Level 9 06/13/18 10:56 Sign Out <Raymond Villalpando MD - Last Filed: 06/13/18 14:51> Sign Out Data: Sign Out Comment: pending placement Last updated by Aleksandr Burk DO at 06/14/18 00:10 Post-Handoff Eval: Patient without issues overnight. Morning medications ordered. Patient to be signed over to oncoming day physician for mental health and case management to work on placement. Continues with one on one observer. Sign Out Comment: Patient signed out pending placement for mental health. Last updated by Rajat Fairchild MD at 06/14/18 08:00
[2018-06-13 11:28] LABS: Abs Immature Grans 0.02 k/cumm (0.0-0.09); Absolute Basophil Count 0.03 k/cumm (0.0-0.2); Absolute Eosinophil Count 0.04 k/cumm (0.0-0.7); Absolute Monocyte Count 0.79 k/cumm (0.11-0.7); Basophils % 0.4; Eosinophils % 0.5; HCT 34.8 % (40.0-50.0); HGB 11.4 g/dL (13.5-17.5); Immature Grans % 0.2; Lymphocytes % 25.9; Mean Corp. HGB Concentration 32.8 g/dL (32.0-36.0); Mean Corpuscular Hemoglobin 29.4 pg (27.0-33.0); Mean Corpuscular Volume 89.7 fL (80-95); Mean Platelet Volume 10.4 fL (8.0-11.0); Monocytes % 9.3; Neutrophils % 63.7; Platelet Count 249 x1000/uL (130-400); RBC 3.88 m/cumm (4.50-6.00); RBC Distribution Width 15.4 % (11.8-14.1); White Blood Cell Count 8.48 k/cumm (4.4-10.8)
[2018-06-13 11:40] LABS: ALT 38 U/L (12-78); AST 22 U/L (15-37); Albumin 3.5 g/dL (3.4-5.0); Alkaline Phosphatase 61 U/L (46-116); Bilirubin, Direct 0.09 mg/dL (0.00-0.20); Bilirubin, Total 0.4 mg/dL (0.2-1.0)
[2018-06-13 11:45] LABS: ALT 38 U/L (12-78); AST 20 U/L (15-37); Albumin 3.4 g/dL (3.4-5.0); Alkaline Phosphatase 62 U/L (46-116); Anion Gap 12.7 mmol/L (3-11); BUN 22 mg/dL (7-18); Bilirubin, Total 0.4 mg/dL (0.2-1.0); CO2 23.3 mmol/L (21.0-32.0); CREATININE 0.95 mg/dL (0.70-1.30); Chloride 102 mmol/L (98-107); Glucose 89 mg/dL (70-100); Magnesium 1.4 mg/dL (1.8-2.4); Potassium 3.8 mmol/L (3.5-5.1); Sodium 138 mmol/L (136-145); Total Protein 7.1 g/dL (6.4-8.2)
[2018-06-13 11:46] LABS: Troponin I < 0.02 ng/mL (0.00-0.06)
[2018-06-13 13:07] LABS: Bilirubin Negative (Negative); Blood Negative (Negative); Clarity Clear; Glucose Negative (Negative); Ketones Negative (Negative); Leukocyte Esterase Negative (Negative); Nitrite Negative (Negative); Urobilinogen 0.2 EU/dL (Up TO 0.2)
--- NOTE | 2018-06-13 15:14 | PDOC.ERCMPRO ---
Care Management Progress Note 06/13-Dr. Villalpando requested that I speak with Raymond as he is stating he can not go back to his residence to live. Met with Raymond. Raymond stated that he is living in a 's home in [facility] ([address] and that they are poisoning him. He states that there has been three instances where they have poisoned him. I had to go to a private home in [place] to have a Colonic, you know, where they clean out your system. The woman told me I have lots of metal in my system and I will need to have another Colonic. Do you understand that? Raymond states he has a daughter and two grandsons but is estranged from his whole family. He states he is from [place]. Discussed calling his family to come get him and bring him back to [place] and he states that is not an option. Discussed going to a hotel for the night and Raymond states, I was suicidal last night and if I stay in a hotel tonight, I will be at risk. I am not safe. I can not afford a hotel room. Explained to Raymond that if he felt suicidal than we could have mental health evaluate him. He stated he would like that. Raymond states he wants us to send him to to the [facility] in [place]. This CM called Jennifer Bowles ([phone]) at the [facility]. Jennifer stated that Gerard CRACKER DOUGH MIXER at the [facility], had placed Raymond at this home on June 01 as he was homeless. Jennifer states that Raymond has bipolar, ADHD, unspecified psychosis and PTSD. Raymond has seen Dr. Johnson (psychiatry) from the [facility] and is schedule to see him again on the 22 of June. Discussed with Jennifer that Dr. Villalpando has ordered a mental health consult here. Jennifer will check to see if there is a bed available at [facility] at the [facility] in [place] ([facility] unit). Once Mental Health evaluation complete, will discuss with Jennifer. Dr. Villalpando is aware of the above. Discussed and signed off to kristina Jackson CM.
--- NOTE | 2018-06-13 15:35 | CMPROGNOTE_ITS ---
Care Management Progress Note 06/13-Dr. Villalpando requested that I speak with Raymond as he is stating he can not go back to his residence to live. Met with Raymond. Raymond stated that he is living in a 's home in [facility] ([address]) and that they are poisoning him. He states that there has been three instances where they have poisoned him. I had to go to a private home in [place] to have a Colonic, you know, where they clean out your system. The woman told me I have lots of metal in my system and I will need to have another Colonic. Do you understand that? Raymond states he has a daughter and two grandsons but is estranged from his whole family. He states he is from [place]. Discussed calling his family to come get him and bring him back to [place] and he states that is not an option. Discussed going to a hotel for the night and Raymond states, I was suicidal last night and if I stay in a hotel tonight, I will be at risk. I am not safe. I can not afford a hotel room. Explained to Raymond that if he felt suicidal than we could have mental health evaluate him. He stated he would like that. Raymond states he wants us to send him to to the [facility] in [place]. This CM called Jennifer Bowles ([phone]) at the [facility]. Jennifer stated that Gerard BOTTOM TURNER at the [facility], had placed Raymond at this home on June 01 as he was homeless. Jennifer states that Raymond has bipolar, ADHD, unspecified psychosis and PTSD. Raymond has seen Dr. Johnson (psychiatry) from the [facility] and is schedule to see him again on the 22 of June. Discussed with Jennifer that Dr. Villalpando has ordered a mental health consult here. Jennifer will check to see if there is a bed available at [facility] at the [facility] in [place] ([facility] psychiatric unit). Once Mental Health evaluation complete, will discuss with Jennifer. Dr. Villalpando is aware of the above. Discussed and signed off to kristina Jackson CM.
--- NOTE | 2018-06-13 15:57 | PDOC.MHCN ---
Date of service: 06/13/18 Time of Service: 15:57 Mental Health Crisis Note Presenting Issue How did you arrive at the ED and why did you come: Patient initially arrived at the hospital for shortness of breath and tingling in his fingertips. He has been medically cleared by the attending physician. During examination the patient expressed thoughts of suicide and paranoia that he is being followed and poisoned. Precipitating Factors The patient states that for the past five years he has been followed by the man his ex- cheated on him with. The patient states that this man did not like that fact that he was confronted and believes that this man has hacked into the last few smart phones he has had and is now hiring people to poison him. 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 The patient is currently suicidal and cannot contract for safety. He identifies overdosing on his prescribed medication as his method of suicide. He states that this is his last straw and can no longer take the pain and suffering from the games this man is playing. The patient stated that he went so far as to hire a bindery technician and paid for a search engine to gain more information about this man and to verify that it is the same individual that he suspected. Disposition BEHAVIOR: No abnormal behavior to report. EYE CONTACT: Patient often looked off into the distance but made intermittent eye contact with this credit underwriter. MOOD: Paranoid but very aware that what he is saying makes him sound crazy AFFECT: Broad APPETITE: Patient states that he has not been eating at his current residence as he believes that he is being poisoned. The patient ate a sandwich while talking with this credit underwriter. SLEEP(trouble falling/staying asleep: The patient states that he has not been able to sleep as the people he lives with are putting a fine white film on his bed, poisoning him. Plan The patient is unable to contract for safety and will remain at the hospital until admitted into the [facility] psychiatric treatment facility located in [place]. Signature Clinician's Name/Title: Romana Trinidad - [facility] Emergency Clinician
--- NOTE | 2018-06-13 16:29 | PDOC.MHCN_ITS ---
Date of service: 06/13/18 Time of Service: 15:57 Mental Health Crisis Note Presenting Issue How did you arrive at the ED and why did you come: Patient initially arrived at the hospital for shortness of breath and tingling in his fingertips. He has been medically cleared by the attending physician. During examination the patient expressed thoughts of suicide and paranoia that he is being followed and poisoned. Precipitating Factors The patient states that for the past five years he has been followed by the man his ex- cheated on him with. The patient states that this man did not like that fact that he was confronted and believes that this man has hacked into the last few smart phones he has had and is now hiring people to poison him. 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 The patient is currently suicidal and cannot contract for safety. He identifies overdosing on his prescribed medication as his method of suicide. He states that this is his last straw and can no longer take the pain and suffering from the games this man is playing. The patient stated that he went so far as to hire a spooler and paid for a search engine to gain more information about this man and to verify that it is the same individual that he suspected. Disposition BEHAVIOR: No abnormal behavior to report. EYE CONTACT: Patient often looked off into the distance but made intermittent eye contact with this typewriters functional tester. MOOD: Paranoid but very aware that what he is saying makes him sound crazy AFFECT: Broad APPETITE: Patient states that he has not been eating at his current residence as he believes that he is being poisoned. The patient ate a sandwich while talking with this typewriters functional tester. SLEEP(trouble falling/staying asleep: The patient states that he has not been able to sleep as the people he lives with are putting a fine white film on his bed, poisoning him. Plan The patient is unable to contract for safety and will remain at the hospital until admitted into the [facility] psychiatric treatment facility located in [place]. Signature Clinician's Name/Title: Romana Trinidad - [facility] Emergency Clinician
--- NOTE | 2018-06-13 18:03 | NUR.NOTE ---
refuses to wear paper clothes, eating supper, states he has no plans to hurt himself or anyone else.Nursing Note:
--- NOTE | 2018-06-13 18:59 | NUR.NOTE ---
resting quietly in his room. Nursing Note:
--- NOTE | 2018-06-13 19:39 | PDOC.ERCMPRO ---
- If Service Date Differs Date of service: 06/13/18 Time of Service: 19:39 Care Management Progress Note CM met with Raymond at the bedside reviewed safety plan and addressed his concerns. Raymond states he is in need of psychiatric stabilization. Raymond states to CM that is he were to leave the hospital he would be suicidal. He states that he was in a psychiatric facility in the last 30 days. He reports that he transition to the boarding home at the farmers daughter recently and he does not feel safe there. He states that he his been struggling with his mental health for the past 5 years and he is tired of fighting it. Raymond states [facility] and [facility]. He reports that he understands the safety plan, he is willing to change into paper clothing and understands why he will not have his belongings at this time. He has been provided with a meal and medication to treat his symptoms of his reported anxiety. He states that Ativan relieves his symptoms and that it what he has had in the [facility]. Raymond is [facility] FOR INPATIENT PSYCHIATRIC STABILIZATION. Raymond has needed some redirection while in the ED including medications to treat symptoms of his reported anxiety.He has been cooperative and appropriate in his interactions with CM. Raymond has articulated his needs and concerns and has been redirectable. Huddle Participants: SANIYA Jackson , Robson KOTHARI dry starch supervisor, Reece Greene APRN, and KINGS Bae crisis. Safety plan has been established with patient, and care team, to adhere to patient goals, identify restrictions based on behavioral status, address nutrition, and determine allowed personal belongings, tools for hygiene and personal care. Determine level of activity including ambulation, level of supervision, visitors, and determine privileges based on behaviors and level of engagement by pt. SAFETY PLAN: 06/13/18 1. Will remain on suicide precautions and in paper clothes. 2. Will remain in room under direct supervision of one-on-one staff at all times provided by WILLIAM MEJIA coin rolling machine operator. 3. May have paper cups, plates, finger foods. 4. Follow [facility] Management of the Admitted Behavioral Health Patient policy. 5. Comfort bath system only. 6. No personal belongings 7. No visitors at this time 8. Raymond may have a TV with remote if he is transferred to the medical surgical unit. [facility], crisis Romana Trinidad will be coordinating placement at inpatient facility, last updates include referral to [facility] through the [place]. no bed available until tomorrow morning. Please review [facility] CM notes for details. Jennifer Bowles will continue to provide support ([facility] CM). Mental health will contact ED with updates at 0830 am.
--- NOTE | 2018-06-13 19:55 | CMPROGNOTE_ITS ---
- If Service Date Differs Date of service: 06/13/18 Time of Service: 19:39 Care Management Progress Note CM met with Raymond at the bedside reviewed safety plan and addressed his concerns. Raymond states he is in need of psychiatric stabilization. Raymond states to CM that is he were to leave the hospital he would be suicidal. He states that he was in a psychiatric facility in the last 30 days. He reports that he transition to the boarding home [facility] recently and he does not feel safe there. He states that he his been struggling with his mental health for the past 5 years and he is tired of fighting it. Raymodn states [facility] and [facility]. He reports that he understands the safety plan, he is willing to change into paper clothing and understands why he will not have his belongings at this time. He has been provided with a meal and medication to treat his symptoms of his reported anxiety. He states that Ativan relieves his symptoms and that it what he has had in the past [facility]. Raymond is [facility] FOR INPATIENT PSYCHIATRIC STABILIZATION. Raymond has needed some redirection while in the ED including medications to treat symptoms of his reported anxiety.He has been cooperative and appropriate in his interactions with CM. Raymond has articulated his needs and concerns and has been redirectable. Huddle Participants: SANIYA Jackson , Robson KOTHARI paster supervisor, Reece Greene APRN, and [facility] crisis. Safety plan has been established with patient, and care team, to adhere to patient goals, identify restrictions based on behavioral status, address nutrition, and determine allowed personal belongings, tools for hygiene and personal care. Determine level of activity including ambulation, level of supervision, visitors, and determine privileges based on behaviors and level of engagement by pt. SAFETY PLAN: 06/13/18 1. Will remain on suicide precautions and in paper clothes. 2. Will remain in room under direct supervision of one-on-one staff at all times provided by WILLIAM MEJIA cork cutter. 3. May have paper cups, plates, finger foods. 4. Follow [facility] Management of the Admitted Behavioral Health Patient policy. 5. Comfort bath system only. 6. No personal belongings 7. No visitors at this time 8. Raymond may have a TV with remote if he is transferred to the medical surgical unit. [facility], crisis Romana Trinidad will be coordinating placement at inpatient facility, last updates include referral to [facility] through the [place]. no bed available until tomorrow morning. Please review Malena Washington CM notes for details. Jennifer Bowles will continue to provide support (OK CM). Mental health will contact ED with updates at 0830 am.
[2018-06-13] MEDS: clonazePAM 1 MG TAB PO (20:19)
[2018-06-13] MEDS: Cetirizine 10 MG TAB PO (20:19)
[2018-06-13] MEDS: traZODone 100 MG TAB 150 MG PO (20:21)
[2018-06-13] MEDS: Zolpidem 10 MG TAB PO (20:23)
--- NOTE | 2018-06-13 23:39 | NUR.NOTE ---
Nursing Note: 2024 Patient stated that he had already taken two doses of metformin today. DO notified. Rested comfortably in his bed after taking his medications, visualized from computer in nurses station. Patient walked to bathroom at 2129 and returned to bed.
--- NOTE | 2018-06-13 23:47 | NUR.NOTE ---
Nursing Note: Patient requesting diet nuris danis. Given.
[2018-06-14 01:00] VITALS: BP 103/55; PULSE 62; RESP 16; TEMP 36.5; O2SAT 94
--- NOTE | 2018-06-14 07:12 | NUR.NOTE ---
resting/sleeping in bed. Nursing Note:
[2018-06-14] MEDS: metFORMIN 850 MG TAB PO (08:00)
[2018-06-14] MEDS: hydrOXYzine HCL 10 MG TAB PO (08:00)
[2018-06-14] MEDS: Furosemide 40 MG TAB PO (08:04)
[2018-06-14] MEDS: Atenolol 25 MG TAB PO (08:05)
[2018-06-14] MEDS: Omeprazole 20 MG CAPCR PO (08:05)
[2018-06-14] MEDS: Aspirin 81 MG CHEW PO (08:05)
--- NOTE | 2018-06-14 09:43 | PDOC.ERCMPRO ---
Care Management Progress Note 06/14-Selena Pressley from [place] called and stated they could take the patient this morning. She will have her physician call Dr. Cruz for report. Funmilayo KTOHARI can call nursing report to [phone] ext [phone], for which she has just done. Discussed transportation with Selena. Discussed that we use inspector and unloader for transport and she was in agreement with that. Dr. Cruz has spoken with Dr. Acharya. Dr. Acharya has requested that the patient go by ambulance. Discussed that the ambulance would not be covered under his Medicare and that it would be private pay. Dr Acharya states that his patients come by ambulance only and that [facility]. Selena called back and stated that the ambulance was being ordered and requested that the nurse call the [facility] nurse when the patient was leaving. Notified Dr. Cruz of the above and she will let Funmilayo KOTHARI know to call the [facility] on discharge. Raymond has read and signed the paperwork for the [facility] and it has been faxed back to Selena.
[2018-06-14] MEDS: Doxycycline Hyclate 100 MG CAP PO (09:45)
[2018-06-14] MEDS: predniSONE 20 MG TAB 40 MG PO (09:46)
[2018-06-14] MEDS: Doxepin 50 MG CAP PO (09:49)
--- NOTE | 2018-06-14 09:51 | CMPROGNOTE_ITS ---
Care Management Progress Note 06/14-Selena Pressley from [place] called and stated they could take the patient this morning. She will have her physician call Dr. Cruz for report. Funmilayo KOTHARI can call nursing report to [phone] ext [phone], for which she has just done. Discussed transportation with Selena. Discussed that we use validation software facilitator for transport and she was in agreement with that. Dr. Cruz has spoken with Dr. Acharya. Dr. Acharya has requested that the patient go by ambulance. Discussed that the ambulance would not be covered under his Medicare and that it would be private pay. Dr Acharya states that his patients come by ambulance only and that the [facility] would [facility] that [facility]. Selena called back and stated that the ambulance was being ordered and requested that the nurse call the [facility] nurse when the patient was leaving. Notified Dr. Cruz of the above and she will let Funmilayo KOTHARI know to call the [facility] on discharge. Raymond has read and signed the paperwork for the [facility] and it has been faxed back to Selena.
--- NOTE | 2018-06-14 09:51 | NUR.NOTE ---
pt took his own meds- gabapentin 300 mg, prozac 30mg, seropuel 25mg. used his inhalers-spireva, striverdi .Nursing Note:
[2018-06-14] MEDS: LORazepam 0.5 MG TAB ×2 (10:40→15:00)
--- NOTE | 2018-06-14 11:35 | NUR.NOTE ---
has been cooperative and pleasant. able to make his needs know. has eaten lunch. Nursing Note:
--- NOTE | 2018-06-14 14:03 | NUR.NOTE ---
1400 gave gabapentin 300mg and seroquel 25mg to pt. used his meds. Nursing Note:
[2018-06-14 15:11] VITALS: BP 123/90; PULSE 71; RESP 16; TEMP 36.5; O2SAT 98
== END 2018-06-14 18:53 | disposition short-term general hospital (02) ==
PROVIDERS: Emergency Medicine; Emergency Provider Physician Assistant
DX: J44.0 Chronic obstructive pulmonary disease with (acute) lower respiratory infection (principal); J20.9 Acute bronchitis, unspecified; R45.851 Suicidal ideations; F22 Delusional disorders; J44.9 Chronic obstructive pulmonary disease, unspecified; Z87.891 Personal history of nicotine dependence; Z75.1 Person awaiting admission to adequate facility elsewhere
CPT/HCPCS: 36415; 80053; 80076; 93005; 94640; 96361; 96374; 96376; 99285; 71046; 81003; 83735; 84484; 85025; 93010; J2060; J7512; J7620